=== PATIENT | male | born 1935 | race Caucasian/White ===

== ENCOUNTER 2018-12-23 10:09 | Emergency (ER) | payer MEDICARE, OTHER ==
[~2018-12-23] VITALS: Ht 172.7 cm; Wt 63.5 kg
[2018-12-23 10:58] LABS: Urine Bacteria NONE SEEN /hpf (None Seen); Urine Blood 3+ /uL (Negative); Urine Specific Gravity 1.021 (1.001-1.035); Urine WBC 5176 /hpf (0 - 3)
[2018-12-23] MEDS ORDERED: cefTRIAXone SOD 1,000 MG VL IM ONE (12:45)
[2018-12-23] MEDS ORDERED: LIDOCAINE 2% (LOCAL ANESTH.) PF 5ml SDV ONE (13:48)
[2018-12-23] MEDS ORDERED: LIDOCAINE HCL (LOCAL ANESTH.) 0.5 % 50ML MDV IJ ONE (14:30)
[2018-12-23 15:07] VITALS: BP 144/82
== END 2018-12-23 15:34 | disposition home or self-care (01) ==
LOC: ER 10:09
DX: N39.0 Urinary tract infection, site not specified (principal)
CPT/HCPCS: 81001; 93005; 96372; 99284; J0696; J2001